=== PATIENT | female | born 1975 | race Caucasian/White ===

== ENCOUNTER 2017-06-23 20:17 | Emergency (ER) | payer MEDICAID ==
[~2017-06-23] VITALS: Ht 165.1 cm; Wt 87.8 kg
[2017-06-23] MEDS ORDERED: DULO-31 PO (20:51)
[2017-06-23] MEDS ORDERED: CHOL400C8 PO (20:53)
[2017-06-23] MEDS ORDERED: BUSP10TA11 PO (20:53)
[2017-06-23] MEDS ORDERED: IBUP-24 PO (20:54)
[2017-06-23] MEDS ORDERED: ketorolac tromethamine 15mg/ml inj. IM ONE (21:00)
[2017-06-23] MEDS ORDERED: HYDR-3965 PO (21:15)
[2017-06-23 21:50] VITALS: BP 168/102
== END 2017-06-23 21:52 | disposition home or self-care (01) ==
LOC: ER 20:18
DX: S52.502A Unspecified fracture of the lower end of left radius, initial encounter for closed fracture (principal); Z79.899 Other long term (current) drug therapy; W11.XXXA Fall on and from ladder, initial encounter; Y93.89 Activity, other specified; Y92.89 Other specified places as the place of occurrence of the external cause; Y99.8 Other external cause status
CPT/HCPCS: 29125; 73110; 96372; 99284; J1885

== ENCOUNTER 2017-07-04 09:02 | Outpatient (CLI) | payer MEDICAID ==
[~2017-07-04 09:02] MED LIST: BUSP10TA11 PO; CHOL400C8 PO; DULO-31 PO; HYDR-3965 PO; IBUP-24 PO
[2017-07-04 09:11] VITALS: BP 155/104
== END 2017-07-04 09:48 | disposition home or self-care (01) ==
LOC: ORTHO 09:02
PROVIDERS: ATTEND Nurse Practitioner Family
DX: S52.502A Unspecified fracture of the lower end of left radius, initial encounter for closed fracture (principal); F41.9 Anxiety disorder, unspecified; X58.XXXA Exposure to other specified factors, initial encounter; Y93.89 Activity, other specified; Y92.89 Other specified places as the place of occurrence of the external cause; Y99.8 Other external cause status
CPT/HCPCS: 99213; A4590

== ENCOUNTER 2017-07-18 09:14 | Outpatient (CLI) | payer MEDICAID | END 2017-07-18 10:03 | disposition home or self-care (01) | LOC: ORTHO 09:14 | PROVIDERS: ATTEND Nurse Practitioner Family | DX: S52.502D Unspecified fracture of the lower end of left radius, subsequent encounter for closed fracture with routine healing (principal); F41.9 Anxiety disorder, unspecified; I10 Essential (primary) hypertension; X58.XXXD Exposure to other specified factors, subsequent encounter | CPT/HCPCS: 73110; 99213 ==

== ENCOUNTER 2017-08-09 10:33 | Outpatient (CLI) | payer MEDICAID ==
[~2017-08-09 10:33] MED LIST changes: -HYDR-3965 PO
== END 2017-08-09 11:19 | disposition home or self-care (01) ==
LOC: ORTHO 10:33
PROVIDERS: ATTEND Nurse Practitioner Family
DX: S52.502D Unspecified fracture of the lower end of left radius, subsequent encounter for closed fracture with routine healing (principal); F41.9 Anxiety disorder, unspecified; X58.XXXD Exposure to other specified factors, subsequent encounter
CPT/HCPCS: 73110; 99213

== ENCOUNTER 2017-08-24 09:09 | Outpatient (CLI) | payer MEDICAID ==
[2017-08-24 09:07] VITALS: BP 155/118
== END 2017-08-24 10:00 | disposition home or self-care (01) ==
LOC: ORTHO 09:09
PROVIDERS: ATTEND Nurse Practitioner Family
DX: S52.501G Unspecified fracture of the lower end of right radius, subsequent encounter for closed fracture with delayed healing (principal); F41.9 Anxiety disorder, unspecified; X58.XXXD Exposure to other specified factors, subsequent encounter
CPT/HCPCS: 73110; 99213

== ENCOUNTER 2017-09-12 13:37 | Outpatient (CLI) | payer MEDICAID | END 2017-09-12 14:13 | disposition home or self-care (01) | LOC: ORTHO 13:37 | PROVIDERS: ATTEND Nurse Practitioner Family | DX: S52.502D Unspecified fracture of the lower end of left radius, subsequent encounter for closed fracture with routine healing (principal); F41.9 Anxiety disorder, unspecified; Z72.89 Other problems related to lifestyle; X58.XXXD Exposure to other specified factors, subsequent encounter | CPT/HCPCS: 73110; 99213 ==

== ENCOUNTER 2019-04-17 09:40 | Emergency (ER) | payer MEDICAID ==
[~2019-04-17] VITALS: Ht 165.1 cm; Wt 83.0 kg
[2019-04-17 13:07] VITALS: BP 164/116
== END 2019-04-17 12:40 | disposition home or self-care (01) ==
LOC: ER 09:40
DX: S13.9XXA Sprain of joints and ligaments of unspecified parts of neck, initial encounter (principal); Z72.89 Other problems related to lifestyle; Z79.899 Other long term (current) drug therapy; V49.69XA Unspecified car occupant injured in collision with other motor vehicles in traffic accident, initial encounter; Y93.89 Activity, other specified; Y92.488 Other paved roadways as the place of occurrence of the external cause; Y99.8 Other external cause status
CPT/HCPCS: 72040; 99283

== ENCOUNTER 2019-10-19 09:12 | Emergency (ER) | payer MEDICAID ==
[~2019-10-19] VITALS: Ht 165.1 cm; Wt 77.3 kg
[2019-10-19] MEDS ORDERED: CYCL-1 PO (10:01)
[2019-10-19 10:15] VITALS: BP 142/80
== END 2019-10-19 10:18 | disposition home or self-care (01) ==
LOC: ER 09:12
DX: R07.89 Other chest pain (principal); F41.9 Anxiety disorder, unspecified; Z79.899 Other long term (current) drug therapy
CPT/HCPCS: 99283

== ENCOUNTER 2020-03-21 12:49 | Emergency (ER) | payer MEDICAID ==
[~2020-03-21] VITALS: Ht 165.1 cm; Wt 81.8 kg
[~2020-03-21 12:49] MED LIST changes: +CYCL-1 PO
[2020-03-21] MEDS ORDERED: HYDR-3972 PO (13:52)
[2020-03-21] MEDS ORDERED: ketorolac trometh inj. 60 MG/2 ML VIAL IM ONE (13:55)
[2020-03-21 14:13] VITALS: BP 144/96
== END 2020-03-21 14:17 | disposition home or self-care (01) ==
LOC: ER 12:49
DX: S22.32XA Fracture of one rib, left side, initial encounter for closed fracture (principal); Z72.89 Other problems related to lifestyle; Z79.899 Other long term (current) drug therapy; W01.0XXA Fall on same level from slipping, tripping and stumbling without subsequent striking against object, initial encounter; Z91.81 History of falling; Y93.89 Activity, other specified; Y92.89 Other specified places as the place of occurrence of the external cause; Y99.8 Other external cause status
CPT/HCPCS: 71045; 96372; 99284; J1885

== ENCOUNTER 2020-03-29 04:19 | Emergency (ER) | payer MEDICAID ==
[~2020-03-29] VITALS: Ht 165.1 cm; Wt 75.0 kg
[~2020-03-29 04:19] MED LIST changes: +HYDR-3972 PO
[2020-03-29 04:27] VITALS: BP 179/116
[2020-03-29] MEDS ORDERED: HYDROcodone/acetaminophen 10/325mg tab PO ONE ×2 (04:45→04:50)
[2020-03-29] MEDS ORDERED: ondansetron 4mg rapidly disintigrating tab PO ONE (04:55)
[2020-03-29] MEDS ORDERED: morphine 4 MG/ML inj SYRINge IM ONE (04:55)
[2020-03-29] MEDS ORDERED: HYDR-3972 PO (05:25)
== END 2020-03-29 05:53 | disposition home or self-care (01) ==
LOC: ER 04:19
DX: S82.845A Nondisplaced bimalleolar fracture of left lower leg, initial encounter for closed fracture (principal); Z79.899 Other long term (current) drug therapy; W10.8XXA Fall (on) (from) other stairs and steps, initial encounter; Y93.89 Activity, other specified; Y92.89 Other specified places as the place of occurrence of the external cause; Y99.8 Other external cause status
CPT/HCPCS: 29515; 73610; 96372; 99283; J2270

== ENCOUNTER 2020-04-21 09:31 | Inpatient (IN) | payer MEDICAID ==
[2020-04-15 16:03] LABS: BASOPHILS # (AUTO) 0.1 X10'3 (0-0.2); BASOPHILS % (AUTO) 0.8 % (0-1); EOSINOPHILS # (AUTO) 0.1 X10'3 (0-0.9); EOSINOPHILS % (AUTO) 1.7 % (0-6); LYMPHOCYTES % (AUTO) 32.6 % (21-51); MEAN CORPUSCULAR HEMOGLOBIN 30.4 PG (27.0-31.0); MEAN CORPUSCULAR HGB CONC 33.1 g/dL (33.0-36.5); MEAN CORPUSCULAR VOLUME 91.9 FL (78-98); MEAN PLATELET VOLUME 7.7 FL (7.4-10.4); MONOCYTES # (AUTO) 0.3 X10'3 (0-0.9); MONOCYTES % (AUTO) 5.4 % (2-12); NEUTROPHILS # (AUTO) 3.7 X10'3 (1.8-7.7); NEUTROPHILS % (AUTO) 59.5 % (42-75); PRE OP HEMATOCRIT 37.5 % (35.0-45.0); PRE OP HEMOGLOBIN 12.4 g/dL (12.0-16.0); PRE OP PLATELET COUNT 364 X10'3 (140-440); RED BLOOD COUNT 4.08 X10'6 (4.20-5.60)
[2020-04-15 16:21] LABS: ALBUMIN 3.7 G/DL (3.4-5.0); ALBUMIN/GLOBULIN RATIO 0.9 (1.1-1.5); ALKALINE PHOSPHATASE 96 IU/L (46-116); BLOOD UREA NITROGEN 11 MG/DL (7-18); BUN/CREATININE RATIO 13.1 (6.6-38.0); CALCIUM 9.5 MG/DL (8.5-10.1); CHLORIDE 106 MMOL/L (99-107); CREATININE 0.84 MG/DL (0.40-0.90); PRE OP ALT 18 U/L (30-65); PRE OP ANION GAP 10 (8-16); PRE OP AST 13 U/L (10-37); PRE OP BILIRUB, TOTAL 0.3 MG/DL (0.0-1.0); PRE OP GLUCOSE 81 MG/DL (70-104); PRE OP POTASSIUM 3.9 MMOL/L (3.4-5.1); PRE OP SODIUM 140 MMOL/L (135-145); TOTAL CARBON DIOXIDE 24.4 MMOL/L (24-32); TOTAL PROTEIN 7.6 G/DL (6.4-8.2); eGFR 73 ML/MIN
[~2020-04-21] VITALS: Ht 165.1 cm; Wt 81.7 kg
[2020-04-21] VITALS (31 sets, daily range): BP systolic 121–167; BP diastolic 78–105
[~2020-04-21 09:31] MED LIST changes: -CHOL400C8 PO; -CYCL-1 PO; +DEXT15CA33 PO; -HYDR-3972 PO; +HYDR-3973 PO; -IBUP-24 PO; +ceFAZolin 2gm in dextrose, iso 50 ML IV ONE; +famotidine 20mg tablet PO ONE; +ringers solution, lacted 1,000 ML IV SCH
[2020-04-21] MEDS ORDERED: HYDROcodone/acetaminophen 10/325mg tab PO ONE (11:40)
[2020-04-21] MEDS ORDERED: MIDAZolam 1 MG/ML 5ML VIAL ONE (12:44)
[2020-04-21] MEDS ORDERED: fentaNYL/PF 50MCG/1 ML 2ML syringe ONE (12:44)
[2020-04-21] MEDS ORDERED: dexamethasone sod phosphate 4mg/ml inj. ONE (13:09)
[2020-04-21] MEDS ORDERED: ROPIVAcaine 0.5% (5mg/ml) 30ml vial ONE (13:09)
[2020-04-21] MEDS ORDERED: propofol inj 20 ML IV ONE (13:09)
[2020-04-21] MEDS ORDERED: LIDOcaine 2% (20mg/ml) 5ml vial ONE (13:09)
[2020-04-21] MEDS ORDERED: ondansetron/PF 4mg/2ml inj ONE (13:10)
[2020-04-21] MEDS ORDERED: morphine 2 MG/ML inj. syringe IV PRN (13:40)
[2020-04-21] MEDS ORDERED: proCHLORperazine 10 MG/2 ml inj IV PRN (13:40)
[2020-04-21] MEDS ORDERED: ringers solution, lacted 1,000 ML IV SCH (13:40)
[2020-04-21] MEDS ORDERED: meperidine/PF 25mg/ml syringe IV PRN ×2 (13:40)
[2020-04-21] MEDS ORDERED: ondansetron/PF 4mg/2ml inj IV PRN ×2 (13:40→18:00)
[2020-04-21] MEDS ORDERED: BUPIVAcaine/PF 2.5 mg/ml (0.25%) 30ml vial ONE (14:52)
[2020-04-21] MEDS ORDERED: meperidine/PF 25mg/ml syringe ONE (15:16)
--- NOTE | 2020-04-21 15:20 | NUR ---
Received from OR via [facility], accompanied by Anesthesiologist DR JIMENEZ and report given by Anesthesiologist. 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 FOOT ELEVATED ABOVE HEART. Addendum: 04/21/20 at 1702 by Leslie Snow RN Amended: Links added.
[2020-04-21] MEDS ORDERED: acetaminophen 1,000mg/100ml IV 100 ML IV ONE (15:25)
[2020-04-21] MEDS: meperidine/PF 25mg/ml syringe IV PRN ×3 (15:46→17:56)
[2020-04-21] MEDS: morphine 4 MG/ML inj SYRINge IV PRN ×3 (16:24→17:05)
[2020-04-21] MEDS ORDERED: HYDROcodone/acetaminophen 10/325mg tab PO PRN ×2 (17:40→17:55)
[2020-04-21] MEDS ORDERED: labetalol 20mg/4ml (5mg/ml) syringe IV PRN (17:45)
[2020-04-21] MEDS ORDERED: labetalol 20mg/4ml (5mg/ml) syringe IV ONE (17:49)
[2020-04-21] MEDS ORDERED: HYDROmorphone/PF 0.2 MG/ML SYRINGE IV PRN (18:00)
--- NOTE | 2020-04-21 18:40 | NUR ---
Patient in room . I have received report from Mabel GILBERT and had the opportunity to ask questions and assume patient care. Pt is in OR still
--- NOTE | 2020-04-21 18:50 | NUR ---
Report called to receiving nurse. Transferred via GURNEY, 2 BAGS OF Belongings, CELL PHONE SENT W/PT TO ROOM 4016. PT WAS ABLE TO TRANSFER HERSELF ONTO BED, RECEIVING RN AT BEDSIDE TO RECEIVE PT, BLL, CALL LIGHT GIVEN TO PT. PT STATES PAIN IS IMPROVED. Special Issues communicated to receiving nurse. YES. Addendum: 04/21/20 at 1910 by Leslie Snow RN Amended: Links added.
--- NOTE | 2020-04-21 19:13 | NUR ---
Pt arrived from OR, Pt is alert and oriented. Able to transfer herself from the gurney to the bed. Minimal pain noted, pt is able to feel sensation at the knee but not in her toes yet. Splint in place on the L side from foot to the knee. Will continue to monitor.
[2020-04-21] MEDS ORDERED: dextroamphetam/amphetam ER cap 15 MG CAP.ER.24H PO SCH (20:00)
[2020-04-21] MEDS: dextroamphetamine/amphetamine ER 5 MG CAP.ER.24H PO SCH (20:00)
[2020-04-21] MEDS: busPIRone 5mg tablet PO SCH (20:00)
[2020-04-21] MEDS: HYDROcodone/acetaminophen 10/325mg tab PO PRN (22:21)
[2020-04-22] VITALS (7 sets, daily range): BP systolic 109–139; BP diastolic 61–95
[2020-04-22] MEDS ORDERED: ceFAZolin/D5W- 1GM premix 50 ML IV SCH
[2020-04-22] MEDS: ceFAZolin/D5W- 1GM premix 50 ML IV SCH ×2 (00:15→07:17)
[2020-04-22] MEDS: sodium chloride 0.45% 1,000 ML IV SCH ×4 (00:15→23:55)
[2020-04-22] MEDS: HYDROcodone/acetaminophen 10/325mg tab PO PRN ×5 (02:52→20:12)
--- NOTE | 2020-04-22 06:05 | NUR ---
received report from mk quinonez
--- NOTE | 2020-04-22 06:25 | NUR ---
Problems reprioritized. Patient report given, questions answered & plan of care reviewed with Mabel GILBERT.
[2020-04-22] MEDS: diphenhydrAMINE 25mg capsule PO PRN ×2 (06:52→17:01)
[2020-04-22] MEDS ORDERED: HYDR-3965 PO (07:13)
[2020-04-22] MEDS: duloxetine 30mg CAPSULE.DR PO SCH (07:14)
[2020-04-22] MEDS: busPIRone 5mg tablet PO SCH ×2 (07:14→20:11)
[2020-04-22] MEDS: dextroamphetamine/amphetamine ER 5 MG CAP.ER.24H PO SCH (07:18)
--- NOTE | 2020-04-22 08:02 | NUR ---
Some morning medicaitions did not scan into [employer], Notified pharm that some meds would not scan. Double checked dose and route with Primary RN
--- NOTE | 2020-04-22 08:47 | NUR ---
student educated pt on how to use IS, pt demo use of IS, continue to educate and to monitor
--- NOTE | 2020-04-22 12:42 | NUR ---
Patient in room [facility]TH[facility] 4016. I have received report from Mabel and had the opportunity to ask questions and assume patient care.
--- NOTE | 2020-04-22 18:08 | NUR ---
gave report to mk quinonez
--- NOTE | 2020-04-22 18:54 | NUR ---
Patient in room ORTHO 4016. I have received report from Mabel GILBERT and had the opportunity to ask questions and assume patient care.
[2020-04-22] MEDS: dextroamphetamine/amphetamine 5mg tablet PO SCH (20:00)
[2020-04-23] MEDS: diphenhydrAMINE 25mg capsule PO PRN (00:31)
[2020-04-23] MEDS: HYDROcodone/acetaminophen 10/325mg tab PO PRN ×3 (00:32→09:21)
[2020-04-23 06:00] VITALS: BP 148/89
--- NOTE | 2020-04-23 06:29 | NUR ---
Problems reprioritized. Patient report given, questions answered & plan of care reviewed with Laurence GILBERT.
--- NOTE | 2020-04-23 06:48 | NUR ---
Patient in room [facility]TH[facility] 4016. I have received report from VLADIMIR Martinez and had the opportunity to ask questions and assume patient care.
[2020-04-23] MEDS: busPIRone 5mg tablet PO SCH (08:10)
[2020-04-23] MEDS: duloxetine 30mg CAPSULE.DR PO SCH (08:11)
[2020-04-23] MEDS: dextroamphetamine/amphetamine 5mg tablet PO SCH (08:11)
[2020-04-23] MEDS: sodium chloride 0.45% 1,000 ML IV SCH (09:55)
[2020-04-23] MEDS ORDERED: oxyCODONE/APAP 5-325mg tablet PO PRN (10:05)
[2020-04-23] MEDS ORDERED: PER5325T PO (12:25)
== END 2020-04-23 15:05 | disposition home or self-care (01) | DRG 313 ==
LOC: PAS 09:31 → ORTHO 4S 19:09
PROVIDERS: ADMIT Orthopaedic Surgery; ATTEND Orthopaedic Surgery
PROC: 0QSH04Z Reposition Left Tibia with Internal Fixation Device, Open Approach (ICD-10-PCS; 2020-04-21)
PROC: 0QUH0KZ Supplement Left Tibia with Nonautologous Tissue Substitute, Open Approach (ICD-10-PCS; 2020-04-21)
PROC: 3E0T3BZ Introduction of Anesthetic Agent into Peripheral Nerves and Plexi, Percutaneous Approach (ICD-10-PCS; 2020-04-21)
PROC: 0QSK04Z Reposition Left Fibula with Internal Fixation Device, Open Approach (ICD-10-PCS; principal; 2020-04-21 12:38)
DX: S82.842A Displaced bimalleolar fracture of left lower leg, initial encounter for closed fracture (principal); M81.0 Age-related osteoporosis without current pathological fracture; Z79.899 Other long term (current) drug therapy
CPT/HCPCS: 36415; 80053; 82948; 85025; 87081; 87635; 97116; 97161; 97530; A4215; A4618; A6449; A7000; C1713; G0378; J0131; J0690; J1100; J2001; J2175; J2250; J2270; J2405; J2704; J2795; J3010; J3490; J7120; Q0163

== ENCOUNTER 2020-05-12 18:37 | Inpatient (IN) | payer MEDICAID ==
[~2020-05-12] VITALS: Ht 162.6 cm; Wt 75.0 kg
[~2020-05-12 18:37] MED LIST changes: -HYDR-3973 PO; +PER5325T PO; -ceFAZolin 2gm in dextrose, iso 50 ML IV ONE; -famotidine 20mg tablet PO ONE; -ringers solution, lacted 1,000 ML IV SCH
[2020-05-12] MEDS ORDERED: normal saline 1000ML IV soln IV ONE (19:35)
[2020-05-12] MEDS ORDERED: morphine 4 MG/ML inj SYRINge IV ONE (19:50)
[2020-05-12] MEDS ORDERED: ondansetron/PF 4mg/2ml inj IV ONE (19:50)
[2020-05-12 20:06] LABS: BASOPHILS % (AUTO) 0.3 % (0-1); EOSINOPHILS # (AUTO) 0.4 X10'3 (0-0.9); EOSINOPHILS % (AUTO) 3.9 % (0-6); HEMATOCRIT 39.1 % (35.0-45.0); LYMPHOCYTES % (AUTO) 19.8 % (21-51); MEAN CORPUSCULAR HEMOGLOBIN 31.3 PG (27.0-31.0); MEAN CORPUSCULAR HGB CONC 33.4 g/dL (33.0-36.5); MEAN CORPUSCULAR VOLUME 93.8 FL (78-98); MEAN PLATELET VOLUME 8.1 FL (7.4-10.4); MONOCYTES # (AUTO) 0.6 X10'3 (0-0.9); NEUTROPHILS # (AUTO) 6.9 X10'3 (1.8-7.7); PLATELET COUNT 282 X10'3 (140-440); RED BLOOD COUNT 4.16 X10'6 (4.20-5.60); WHITE BLOOD COUNT 9.9 X10'3 (4.5-11.0)
[2020-05-12 20:15] LABS: ALANINE AMINOTRANSFERASE 18 U/L (12-78); ALBUMIN 3.8 G/DL (3.4-5.0); ALKALINE PHOSPHATASE 105 IU/L (46-116); ANION GAP 11 (8-16); ASPARTATE AMINO TRANSFERASE 8 U/L (10-37); BILIRUBIN,TOTAL 0.3 MG/DL (0.1-1.0); BLOOD UREA NITROGEN 12 MG/DL (7-18); BUN/CREATININE RATIO 13.8 (6.6-38.0); CALCIUM 9.1 MG/DL (8.5-10.1); CHLORIDE 104 MMOL/L (99-107); CREATININE 0.87 MG/DL (0.40-0.90); GLUCOSE 95 MG/DL (70-104); POTASSIUM 4.3 MMOL/L (3.5-5.1); SODIUM 138 MMOL/L (135-145); TOTAL CARBON DIOXIDE 23.1 MMOL/L (24-32); TOTAL PROTEIN 7.8 G/DL (6.4-8.2); eGFR 70 ML/MIN
[2020-05-12] MEDS ORDERED: diphenhydrAMINE 50 mg/ml inj IV ONE (20:30)
[2020-05-12] MEDS ORDERED: CefTRIAXone 2gm/D5W 50ml BAG 50 ML IV ONE (20:30)
[2020-05-12] MEDS ORDERED: vancomycin/NS 1 GM ADD-VANTAGE 250 ML IV ONE (20:30)
[2020-05-12] MEDS ORDERED: HYDROcodone/acetaminophen 10/325mg tab PO PRN (21:00)
[2020-05-12] MEDS ORDERED: morphine 2 MG/ML inj. syringe IV PRN (21:00)
[2020-05-12] MEDS ORDERED: magnesium hydroxide 30ml (MOM) UD suspension PO PRN (21:00)
[2020-05-12] MEDS ORDERED: ondansetron/PF 4mg/2ml inj IV PRN (21:00)
[2020-05-12] MEDS ORDERED: mag hydrox/Alum hydrox/simeth 30ml oral suspension PO PRN (21:00)
[2020-05-12] MEDS ORDERED: HYDROcodone/acetaminophen 5mg/325mg tablet PO PRN (21:00)
[2020-05-12] MEDS ORDERED: acetaminophen 325mg tablet PO PRN ×2 (21:00)
[2020-05-12 21:09] LABS: CLARITY,URINE CLEAR (Clear); COLOR,URINE YELLOW (Yellow); GLUCOSE, URINE NEGATIVE (Neg); KETONES,URINE NEGATIVE (Neg); LEUKOCYTE ESTERASE ,URINE SMALL (Neg); NITRITES, URINE NEGATIVE (Neg); OCCULT BLOOD,URINE NEGATIVE (Neg); PROTEIN,URINE NEGATIVE (Neg); URINE HCG NEGATIVE (NEG); UROBILINOGEN,URINE 0.2 E.U/dL (0.2-1.0)
[2020-05-12 21:11] LABS: UA COLLECTION TYPE CLN CATCH MIDSTREAM
[2020-05-12 21:17] LABS: BACTERIA,URINE FEW /HPF (Neg); RBC,URINE NONE SEEN /HPF (0-2); SQUAMOUS EPITHELIAL CELL,UR FEW /LPF (FEW); WBC,URINE 0-4 /HPF (0-4)
[2020-05-12] MEDS: morphine 2 MG/ML inj. syringe IV PRN (22:07)
[2020-05-12] MEDS ORDERED: oxyCODONE/APAP 5-325mg tablet PO PRN (22:40)
[2020-05-12] MEDS: diphenhydrAMINE 50 mg/ml inj IV PRN (22:48)
[2020-05-12 23:30] VITALS: BP 160/88
[2020-05-12] MEDS: oxyCODONE/APAP 10/325mg tablet PO PRN (23:43)
[2020-05-13] MEDS ORDERED: predniSONE 20 mg tablet PO ONE ×2 (00:45→12:35)
[2020-05-13] MEDS: oxyCODONE/APAP 10/325mg tablet PO PRN (05:20)
[2020-05-13] MEDS: diphenhydrAMINE 50 mg/ml inj IV PRN (05:21)
[2020-05-13 05:50] LABS: BASOPHILS % (AUTO) 0.5 % (0-1); EOSINOPHILS # (AUTO) 0.1 X10'3 (0-0.9); EOSINOPHILS % (AUTO) 1.6 % (0-6); HEMATOCRIT 36.1 % (35.0-45.0); HEMOGLOBIN 12.1 g/dl (12.0-16.0); LYMPHOCYTES # (AUTO) 0.8 X10'3 (1.1-4.8); LYMPHOCYTES % (AUTO) 10.6 % (21-51); MEAN CORPUSCULAR HEMOGLOBIN 30.8 PG (27.0-31.0); MEAN CORPUSCULAR HGB CONC 33.4 g/dL (33.0-36.5); MEAN CORPUSCULAR VOLUME 92.4 FL (78-98); MEAN PLATELET VOLUME 8.3 FL (7.4-10.4); MONOCYTES # (AUTO) 0.2 X10'3 (0-0.9); MONOCYTES % (AUTO) 2.8 % (2-12); NEUTROPHILS # (AUTO) 6.3 X10'3 (1.8-7.7); NEUTROPHILS % (AUTO) 84.5 % (42-75); PLATELET COUNT 242 X10'3 (140-440); RED BLOOD COUNT 3.91 X10'6 (4.20-5.60); RED CELL DISTRIBUTION WIDTH 12.8 % (11.5-14.5); WHITE BLOOD COUNT 7.4 X10'3 (4.5-11.0)
[2020-05-13 05:58] LABS: ALBUMIN 3.4 G/DL (3.4-5.0); ANION GAP 7 (8-16); BLOOD UREA NITROGEN 12 MG/DL (7-18); BUN/CREATININE RATIO 13.6 (6.6-38.0); CALCIUM 8.8 MG/DL (8.5-10.1); CHLORIDE 106 MMOL/L (99-107); CREATININE 0.88 MG/DL (0.40-0.90); GLUCOSE 110 MG/DL (70-104); POTASSIUM 4.4 MMOL/L (3.5-5.1); SODIUM 139 MMOL/L (135-145); TOTAL CARBON DIOXIDE 25.7 MMOL/L (24-32); eGFR 69 ML/MIN
--- NOTE | 2020-05-13 06:13 | NUR ---
Problems reprioritized. Patient report given, questions answered & plan of care reviewed with VLADIMIR James and VLADIMIR Shafer.
--- NOTE | 2020-05-13 06:34 | NUR ---
Patient in room [facility] 354. I have received report from Josue GILBERT and had the opportunity to ask questions and assume patient care.
[2020-05-13 07:00] VITALS: BP 146/94
[2020-05-13] MEDS: vancomycin/NS 1 GM ADD-VANTAGE 250 ML IV SCH ×2 (07:52→20:14)
[2020-05-13] MEDS: enoxaparin 40mg/0.4ml syringe SUBCUT SCH (07:54)
[2020-05-13] MEDS ORDERED: CefTRIAXone/D5W-Rocephin 1gm 50 ML IV ONE (08:45)
[2020-05-13] MEDS: duloxetine 30mg CAPSULE.DR PO SCH (09:31)
[2020-05-13] MEDS: busPIRone 5mg tablet PO SCH ×2 (09:32→20:00)
[2020-05-13 11:00] VITALS: BP 117/85
[2020-05-13] MEDS ORDERED: hydrOXYzine 25 MG tablet PO PRN (11:35)
[2020-05-13] MEDS ORDERED: famotidine/PF IV inj 40 MG in normal saline 100ml IV soln 100 ML IV ONE (12:35)
[2020-05-13] MEDS ORDERED: famotidine/PF IV inj 40 MG in normal saline 100ml IV soln 96 ML IV ONE (12:43)
[2020-05-13] MEDS: morphine 2 MG/ML inj. syringe IV PRN (16:50)
--- NOTE | 2020-05-13 17:00 | NUR ---
patient seen by Laurence Sinclair NP, johan removed to left ankle and wound orders given. Morphine given for pain 10/10 during dressing change. will continue to monitor.
[2020-05-13 18:00] VITALS: BP 156/88
[2020-05-13] MEDS: hydrOXYzine 25 MG tablet PO PRN (18:02)
--- NOTE | 2020-05-13 18:33 | NUR ---
Problems reprioritized. Patient report given, questions answered & plan of care reviewed with Josue GILBERT.
--- NOTE | 2020-05-13 18:48 | NUR ---
Patient in room [facility] 354. I have received report from VLADIMIR Shafer and had the opportunity to ask questions and assume patient care.
[2020-05-13] MEDS: lactobacillus rhamnosus 10,000 MMU CELLS/CAPSULE PO SCH (20:00)
[2020-05-14] VITALS: BP 117/73
[2020-05-14] MEDS: oxyCODONE/APAP 10/325mg tablet PO PRN ×3 (01:26→20:27)
[2020-05-14] MEDS: hydrOXYzine 25 MG tablet PO PRN ×3 (01:27→17:32)
--- NOTE | 2020-05-14 06:23 | NUR ---
Problems reprioritized. Patient report given, questions answered & plan of care reviewed with VLADIMIR Hall.
[2020-05-14] MEDS ORDERED: VANCOMYCIN LEVEL IV ONE (07:30)
[2020-05-14 07:40] VITALS: BP 127/81
[2020-05-14 07:45] LABS: BASOPHILS % (AUTO) 0.4 % (0-1); EOSINOPHILS # (AUTO) 0.1 X10'3 (0-0.9); HEMATOCRIT 33.5 % (35.0-45.0); LYMPHOCYTES # (AUTO) 1.9 X10'3 (1.1-4.8); LYMPHOCYTES % (AUTO) 27.8 % (21-51); MEAN CORPUSCULAR HGB CONC 32.9 g/dL (33.0-36.5); MEAN CORPUSCULAR VOLUME 94.1 FL (78-98); MEAN PLATELET VOLUME 8.5 FL (7.4-10.4); MONOCYTES # (AUTO) 0.4 X10'3 (0-0.9); MONOCYTES % (AUTO) 5.9 % (2-12); NEUTROPHILS # (AUTO) 4.5 X10'3 (1.8-7.7); NEUTROPHILS % (AUTO) 64.9 % (42-75); PLATELET COUNT 227 X10'3 (140-440); RED BLOOD COUNT 3.55 X10'6 (4.20-5.60); RED CELL DISTRIBUTION WIDTH 13.1 % (11.5-14.5); WHITE BLOOD COUNT 6.9 X10'3 (4.5-11.0)
[2020-05-14 07:59] LABS: ALBUMIN 2.9 G/DL (3.4-5.0); ANION GAP 5 (8-16); BLOOD UREA NITROGEN 16 MG/DL (7-18); BUN/CREATININE RATIO 19.3 (6.6-38.0); CALCIUM 8.5 MG/DL (8.5-10.1); CHLORIDE 111 MMOL/L (99-107); CREATININE 0.83 MG/DL (0.40-0.90); GLUCOSE 99 MG/DL (70-104); POTASSIUM 3.8 MMOL/L (3.5-5.1); SODIUM 145 MMOL/L (135-145); TOTAL CARBON DIOXIDE 28.7 MMOL/L (24-32); VANCOMYCIN,TROUGH 11.7 UG/ML (6.0-14.0); eGFR 74 ML/MIN
[2020-05-14] MEDS: TYPE IN GENERIC & BRAND NAME OF PATIENT MED STRENGTH & FORM PO SCH (08:00)
[2020-05-14] MEDS: CefTRIAXone/D5W-Rocephin 1gm 50 ML IV SCH (08:23)
[2020-05-14] MEDS: busPIRone 5mg tablet PO SCH ×2 (08:25→20:26)
[2020-05-14] MEDS: enoxaparin 40mg/0.4ml syringe SUBCUT SCH (08:25)
[2020-05-14] MEDS: lactobacillus rhamnosus 10,000 MMU CELLS/CAPSULE PO SCH ×2 (08:25→20:25)
[2020-05-14] MEDS: duloxetine 30mg CAPSULE.DR PO SCH (08:25)
[2020-05-14] MEDS: VANCOmycin 1250MG/NS 250ml Bag 250 ML IV SCH ×2 (10:06→22:20)
[2020-05-14] MEDS ORDERED: PRED20TA PO (10:06)
[2020-05-14 11:00] VITALS: BP 141/84
--- NOTE | 2020-05-14 18:20 | NUR ---
Problems reprioritized. Patient report given, questions answered & plan of care reviewed with VLADIMIR EPPS.
--- NOTE | 2020-05-14 18:30 | NUR ---
Patient in room [facility] 354. I have received report from JAYJAY GILBERT and had the opportunity to ask questions and assume patient care.
[2020-05-14 20:00] VITALS: BP 139/89
[2020-05-15] VITALS: BP 128/87
[2020-05-15] MEDS: oxyCODONE/APAP 10/325mg tablet PO PRN ×2 (00:37→07:53)
[2020-05-15] MEDS: hydrOXYzine 25 MG tablet PO PRN ×2 (00:38→07:53)
--- NOTE | 2020-05-15 06:30 | NUR ---
Problems reprioritized. Patient report given, questions answered & plan of care reviewed with JAYJAY GILBERT.
--- NOTE | 2020-05-15 06:47 | NUR ---
Patient in room [facility]. I have received report from VLADIMIR Hudson and had the opportunity to ask questions and assume patient care.
[2020-05-15 06:57] LABS: BASOPHILS % (AUTO) 0.5 % (0-1); EOSINOPHILS # (AUTO) 0.2 X10'3 (0-0.9); EOSINOPHILS % (AUTO) 4.7 % (0-6); HEMOGLOBIN 11.4 g/dl (12.0-16.0); LYMPHOCYTES # (AUTO) 2.2 X10'3 (1.1-4.8); LYMPHOCYTES % (AUTO) 44.5 % (21-51); MEAN CORPUSCULAR HEMOGLOBIN 31.3 PG (27.0-31.0); MEAN CORPUSCULAR HGB CONC 33.4 g/dL (33.0-36.5); MEAN CORPUSCULAR VOLUME 93.6 FL (78-98); MEAN PLATELET VOLUME 8.7 FL (7.4-10.4); MONOCYTES # (AUTO) 0.3 X10'3 (0-0.9); MONOCYTES % (AUTO) 5.6 % (2-12); NEUTROPHILS # (AUTO) 2.2 X10'3 (1.8-7.7); NEUTROPHILS % (AUTO) 44.7 % (42-75); PLATELET COUNT 226 X10'3 (140-440); RED BLOOD COUNT 3.64 X10'6 (4.20-5.60); RED CELL DISTRIBUTION WIDTH 13.3 % (11.5-14.5)
[2020-05-15 07:40] VITALS: BP 166/86
[2020-05-15 07:46] LABS: ALBUMIN 2.9 G/DL (3.4-5.0); ANION GAP 9 (8-16); BLOOD UREA NITROGEN 16 MG/DL (7-18); BUN/CREATININE RATIO 19.5 (6.6-38.0); CALCIUM 8.5 MG/DL (8.5-10.1); CHLORIDE 109 MMOL/L (99-107); CREATININE 0.82 MG/DL (0.40-0.90); GLUCOSE 81 MG/DL (70-104); POTASSIUM 4.1 MMOL/L (3.5-5.1); SODIUM 145 MMOL/L (135-145); TOTAL CARBON DIOXIDE 26.8 MMOL/L (24-32); eGFR 75 ML/MIN
[2020-05-15] MEDS: CefTRIAXone/D5W-Rocephin 1gm 50 ML IV SCH (07:52)
[2020-05-15] MEDS: lactobacillus rhamnosus 10,000 MMU CELLS/CAPSULE PO SCH (07:52)
[2020-05-15] MEDS: busPIRone 5mg tablet PO SCH (07:53)
[2020-05-15] MEDS: duloxetine 30mg CAPSULE.DR PO SCH (07:54)
[2020-05-15] MEDS: enoxaparin 40mg/0.4ml syringe SUBCUT SCH (08:00)
[2020-05-15] MEDS: TYPE IN GENERIC & BRAND NAME OF PATIENT MED STRENGTH & FORM PO SCH (08:00)
[2020-05-15] MEDS ORDERED: PER5325T PO (10:07)
[2020-05-15 11:00] VITALS: BP 159/83
[2020-05-15] MEDS: VANCOmycin 1250MG/NS 250ml Bag 250 ML IV SCH (11:48)
--- NOTE | 2020-05-15 12:49 | NUR ---
PAGER ID: [phone] MESSAGE: Buck RazoA: reji LERNER said patient is good to go. she is comfortable with dressing change. supplies are at bedside and her ride is ready to get her. thanks! edgardo [phone]
--- NOTE | 2020-05-15 14:05 | NUR ---
patient stable and appropriate for discharge home with family. IV removed, all belongings taken from room. new prescriptions transmitted to preferred pharmacy. all discharge instructions and education given and reviewed with patient, all questions answered. patient demonstrated dressing change and felt comfortable doing it independently. wound care supplies sent home with patient.
--- NOTE | 2020-05-15 14:12 | NUR ---
Student documentation: I have reviewed and agree with all interventions, assessments performed and documented by SN LEATHA. Student Medication Administration: For this medication-pass time frame, all medication were reviewed, dispensed, administered and documented per hospital policy by SN LEATHA.
[2020-05-15] MEDS ORDERED: VANCOMYCIN LEVEL IV ONE (21:30)
== END 2020-05-15 14:02 | disposition home or self-care (01) | DRG 385 ==
LOC: ER 18:39 → ED HOLD 20:59 → SUR 3N 22:58
PROVIDERS: ADMIT Internal Medicine; ATTEND Family Medicine
DX: L25.9 Unspecified contact dermatitis, unspecified cause (principal); F41.9 Anxiety disorder, unspecified; R29.6 Repeated falls; M25.572 Pain in left ankle and joints of left foot; F32.9 Major depressive disorder, single episode, unspecified; Z56.0 Unemployment, unspecified; Z79.899 Other long term (current) drug therapy; Z82.5 Family history of asthma and other chronic lower respiratory diseases; Z83.3 Family history of diabetes mellitus; Z88.5 Allergy status to narcotic agent
CPT/HCPCS: 36415; 71045; 73610; 80048; 80053; 80202; 81001; 81025; 83605; 84145; 85025; 87040; 87081; 87088; 93005; 96361; 96365; 96375; 97161; 97530; 99285; G0378; J0696; J1200; J1650; J2270; J2405; J3370; J3490; J7030; J7512; Q0177

== ENCOUNTER 2021-01-30 19:00 | Emergency (ER) | payer MEDICAID ==
[~2021-01-30] VITALS: Ht 165.1 cm; Wt 79.5 kg
[~2021-01-30 19:00] MED LIST changes: +PRED20TA PO
--- NOTE | 2021-01-30 19:32 | NUR ---
ASSUMED CARE OF PT. PT SITTING CALMLY ON [place]. NO SOB COMPLAINTS. SATTING ABOVE 95% ON RA.
[2021-01-30] MEDS ORDERED: PERM60CR19 TP (19:47)
[2021-01-30] MEDS ORDERED: HYDR-3686 PO (19:47)
[2021-01-30] MEDS ORDERED: PRED10TA23 PO (19:47)
[2021-01-30] MEDS ORDERED: hydrOXYzine 25 MG tablet PO ONE (20:00)
[2021-01-30 20:52] VITALS: BP 143/84
== END 2021-01-30 20:53 | disposition home or self-care (01) ==
LOC: ER 19:01
DX: R21 Rash and other nonspecific skin eruption (principal); L29.8 Other pruritus; F41.9 Anxiety disorder, unspecified; Z88.5 Allergy status to narcotic agent; Z88.6 Allergy status to analgesic agent; Z88.8 Allergy status to other drugs, medicaments and biological substances; Z91.040 Latex allergy status
CPT/HCPCS: 99283; Q0177